=== PATIENT | female | born 1995 | race African-American/Black ===

== ENCOUNTER 2016-07-22 20:40 | Emergency (ER) | payer OTHER ==
[~2016-07-22] VITALS: Ht 162.6 cm; Wt 50.0 kg
[2016-07-22 20:52] VITALS: BP 122/61; TEMP 99.4
[2016-07-22] MEDS ORDERED: CEPHALEXIN500 M1 PO (23:44)
[2016-07-22 23:55] VITALS: PULSE 52
== END 2016-07-22 23:55 | disposition home or self-care (01) ==
LOC: COL.ER 20:40
DX: S61.214A Laceration without foreign body of right ring finger without damage to nail, initial encounter (principal); S66.124A Laceration of flexor muscle, fascia and tendon of right ring finger at wrist and hand level, initial encounter; Z23 Encounter for immunization; Y92.000 Kitchen of unspecified non-institutional (private) residence as the place of occurrence of the external cause; W25.XXXA Contact with sharp glass, initial encounter

== ENCOUNTER 2016-07-24 06:03 | Day surgery (SDC) | payer OTHER ==
[2016-07-24] VITALS (7 sets, daily range): BP systolic 92–109; BP diastolic 63–76; PULSE 51–75; TEMP 97.7–99.1
[~2016-07-24] VITALS: Ht 162.6 cm; Wt 49.3 kg
[~2016-07-24 06:03] MED LIST: CEPHALEXIN500 M1 PO
[2016-07-24] MEDS ORDERED: CEPHALEXIN500 M1 PO (07:04)
[2016-07-24] MEDS ORDERED: NORCO 325 MG-7.1 TAB PO (07:05)
[2016-07-24] MEDS ORDERED: NORCO 325 MG-51 TAB PO (10:12)
== END 2016-07-24 11:30 | disposition home or self-care (01) ==
LOC: SDCO 06:03
DX: S61.204A Unspecified open wound of right ring finger without damage to nail, initial encounter (principal)
CPT/HCPCS: J0690; J1100; J2405; J2704; J3010; J7120